=== PATIENT | male | born 1985 | race Caucasian/White ===

== ENCOUNTER 2018-08-26 16:46 | Emergency (ER) | payer OTHER ==
[2018-08-26] MEDS ORDERED: NS 1,000 ML IV ONE (18:29)
[2018-08-26] MEDS ORDERED: ONDANSETRON 4 MG/2 ML VIAL IVP ONE (18:29)
[2018-08-26] MEDS ORDERED: KETOROLAC 30 MG/1 ML SDV IVP ONE (18:29)
--- NOTE | 2018-08-26 18:34 | EDPHY ---
H & P Stated Complaint: R ABD PAIN X 4 DAYS Time Seen by Provider: 08/26/18 18:25 HPI/ROS: CHIEF COMPLAINT: Left upper quadrant pain HISTORY OF PRESENT ILLNESS: Patient is a 33-year-old man who comes to the emergency department complaining of 4 days left upper quadrant pain that is gradually worsening. He had diarrhea on the 1st day but that has since resolved. He is feeling progressively more nauseous but has not vomited. His states that he looks pale. No fever. No blood in his stool. No heartburn symptoms. He has not had the symptoms before. States that it occasionally radiates up to his left chest and down to his left groin. No trauma. No history of abdominal surgery. Severity: Moderate Modifying factors: None REVIEW OF SYSTEMS: Constitutional: denies: chills, fever, recent illness, recent injury EENTM: denies: blurred vision, double vision, nose congestion Respiratory: denies: cough, shortness of breath Cardiac: denies: chest pain, irregular heart rate, lightheadedness, palpitations Gastrointestinal/Abdominal: See HPI Genitourinary: denies: dysuria, frequency, hematuria, pain Musculoskeletal: denies: joint pain, muscle pain Skin: denies: lesions, rash, jaundice, bruising Neurological: denies: headache, numbness, paresthesia, tingling, dizziness, weakness Hematologic/Lymphatic: denies: blood clots, easy bleeding, easy bruising Immunologic/allergic: denies: HIV/AIDS, transplant 10 systems reviewed and negative except as noted EXAM: GENERAL: Well-appearing, well-nourished and in no acute distress. HEAD: Atraumatic, normocephalic. EYES: Pupils equal round and reactive to light, extraocular movements intact, sclera anicteric, conjunctiva are normal. ENT: TMs normal, nares patent, oropharynx clear without exudates. Moist mucous membranes. NECK: Normal range of motion, supple without lymphadenopathy or JVD. LUNGS: Breath sounds clear to auscultation bilaterally and equal. No wheezes rales or rhonchi. HEART: Regular rate and rhythm without murmurs, rubs or gallops. ABDOMEN: Soft, nontender, normoactive bowel sounds. No guarding, no rebound. No masses appreciated. BACK: No CVA tenderness, no spinal tenderness, step-offs or deformities EXTREMITIES: Normal range of motion, no pitting or edema. No clubbing or cyanosis. NEUROLOGICAL: Cranial nerves II through XII grossly intact. Normal speech, normal gait. 5/5 strength, normal movement in all extremities, normal sensation , normal reflexes PSYCH: Normal mood, normal affect. SKIN: Warm, dry, normal turgor, no visible rashes or lesions. Source: Patient Exam Limitations: No limitations - Personal History Current Tetanus Diphtheria and Acellular Pertussis (TDAP): Yes - Medical/Surgical History Hx Asthma: No Hx Chronic Respiratory Disease: No Hx Diabetes: No Hx Cardiac Disease: No Hx Renal Disease: No Hx Cirrhosis: No Hx Alcoholism: No Hx HIV/AIDS: No Hx Splenectomy or Spleen Trauma: No Other PMH: PERIANAL ABCESS - Family History Significant Family History: No pertinent family hx - Social History Smoking Status: Never smoked Alcohol Use: Sober Drug Use: None Constitutional: Initial Vital Signs Temperature (C) 36.7 C 08/26/18 16:58 Heart Rate 58 L 08/26/18 16:58 Respiratory Rate 18 08/26/18 16:58 Blood Pressure 142/79 H 08/26/18 16:58 O2 Sat (%) 98 08/26/18 16:58 O2 Delivery Mode Room Air Allergies/Adverse Reactions: No Known Allergies Allergy (Unverified 08/26/18 16:58) Home Medications: Medication Instructions Recorded Ondansetron Odt [Zofran Odt 4 mg 4 mg PO Q4 PRN #20 tab 08/26/18 (RX)] Zantac 08/26/18 Medical Decision Making - Diagnostics Imaging: Discussed imaging studies w/ scalloper Radiologist ED Course/Re-evaluation: Is 8:00 p.m. The patient is reassured by the lab work and CT scan. This is likely gastroenteritis. We also discussed the possibility of having passed kidney stones although his symptomatology does not really fit other than the brief radiation to his groin. He feels reassured. I encouraged hydration and rest. He declines further workup or testing at this time. Differential Diagnosis: Partial list of the Differential diagnosis considered include but were not limited to; gastritis, urinary tract infection, kidney stone, peptic ulcer disease and although unlikely based on the history and physical exam, I also considered obstruction, ischemia, appendicitis, biliary disease. I discussed these differential diagnoses and the plan with the patient as well as the usual and expected course. The patient understands that the diagnosis is provisional and that in medicine we are not always correct and that further workup is often warranted. Usual and customary warnings were given. All of the patient's questions were answered. The patient was instructed to return to the emergency department should the symptoms at all worsen or return, otherwise to followup with the physician as we discussed. - Data Points Laboratory Results: Laboratory Results 08/26/18 17:55 08/26/18 17:55 Medications Given: Discontinued Medications Sodium Chloride (Ns) 1,000 mls @ 0 mls/hr IV EDNOW ONE; Wide Open PRN Reason: Protocol Stop: 08/26/18 18:30 Last Admin: 08/26/18 18:35 Dose: 1,000 mls Ketorolac Tromethamine (Toradol) 15 mg IVP EDNOW ONE Stop: 08/26/18 18:30 Last Admin: 08/26/18 18:36 Dose: 15 mg Ondansetron HCl (Zofran) 4 mg IVP EDNOW ONE Stop: 08/26/18 18:30 Last Admin: 08/26/18 18:36 Dose: 4 mg Ondansetron HCl (Zofran Odt 4 Mg Prepack#2) 1 btl TAKEHOME EDNOW ONE Stop: 08/26/18 20:01 Last Admin: 08/26/18 20:57 Dose: 1 btl Departure - Departure Disposition: Home, Routine, Self-Care Clinical Impression: Abdominal pain Diarrhea Qualifiers: Diarrhea type: unspecified type Qualified Code(s): R19.7 - Diarrhea, unspecified Condition: Fair Instructions: Ondansetron (By mouth), Acute Diarrhea (ED), Acute Abdominal Pain (ED) Referrals: NONE *PRIMARY CARE P,. [Primary Care Provider] - As per Instructions Julián Cline MD [Medical Doctor] - 2-3 days, if not improved Prescriptions: Ondansetron Odt [Zofran Odt 4 mg (RX)] 4 mg PO Q4 PRN #20 tab PRN Reason: Nausea & Vomiting
[2018-08-26 18:46] LABS: PLATELET COUNT 142 10^3/uL (150-400)
[2018-08-26] MEDS ORDERED: IOPAMIDOL (ISOVUE-300) 100 ML BTL ONE (18:52)
[2018-08-26] MEDS ORDERED: ONDANSETRON 4MG PREPACK#2 BTL TAKEHOME ONE (20:00)
[2018-08-26 21:03] VITALS: BP 133/79
== END 2018-08-26 21:03 | disposition home or self-care (01) ==
DX: R10.11 Right upper quadrant pain (principal); R19.7 Diarrhea, unspecified; E86.9 Volume depletion, unspecified
CPT/HCPCS: 96374; J1885; J2405; Q9967